=== PATIENT | female | born 1990 | race Two or more races ===

== ENCOUNTER → 2024-07-03 09:59 | Outpatient (CLI) | payer OTHER | END | disposition home or self-care (01) | LOC: PRENATAL 09:59 | PROVIDERS: ATTEND Obstetrics & Gynecology Maternal & Fetal Medicine | DX: O26.843 Uterine size-date discrepancy, third trimester (principal); O36.8130 Decreased fetal movements, third trimester, not applicable or unspecified; Z3A.34 34 weeks gestation of pregnancy ==

== ENCOUNTER 2024-08-02 05:38 | Inpatient (IN) | payer OTHER ==
[~2024-08-02] VITALS: Ht 157.5 cm; Wt 86.2 kg
[2024-08-02 05:55] VITALS: BP 117/60
[2024-08-02] MEDS ORDERED: PRENATAL TABLE1 EAC1 PO (06:45)
[2024-08-02] MEDS ORDERED: FOLIC ACID20 MG PO (06:45)
[2024-08-02] MEDS ORDERED: AMPICILLIN SODIUM 2,000 MG in 0.9 % SODIUM CHLORIDE 100 ML IV SCH (07:01)
[2024-08-02 07:03] LABS: PH,URINE 6.5 (5.0-8.0); URINE APPEARANCE Clear; URINE BILIRRUBIN Negative (NEGATIVE); URINE BLOOD Negative; URINE COLOR Yellow; URINE GLUCOSE Negative (NEGATIVE); URINE KETONE 15 (NEGATIVE); URINE LEUKOCYTE Trace; URINE NITRATE Negative; URINE PROTEIN Negative (NEGATIVE); URINE UROBILINOGEN 0.2 E.U./dl
[2024-08-02 07:06] LABS: URINE BACTERIA 4229.6 uL (0.0-1933); URINE EPITHELIAL CELLS 25.3 uL (0.0-38.8); URINE RBC 9.7 uL (0.0-20.8); URINE WBC 70.9 uL (0.0-23.2)
[2024-08-02 07:19] VITALS: BP 138/81
[2024-08-02 07:23] LABS: URINE CAST 0.15 uL (0.0-1.40)
[2024-08-02 07:39] LABS: INR 0.96; PARTIAL THROMBOPLASTIN TIME 25.1 SECONDS (22.0-34.0); PROTHROMBIN TIME 10.5 SECONDS (9.0-11.5)
[2024-08-02 07:43] LABS: ALBUMIN 2.8 gm/dL (3.4-5.0); BILIRUBIN TOTAL 0.27 mg/dL (0.3-1.2); CALCIUM 8.7 mg/dL (8.5-10.1); CREATININE SERUM 0.51 mg/dL (0.55-1.02); GFR 138.88; GLOBULINA 3.7 G/DL (2.4-3.5); POTASSIUM 3.98 mEq/L (3.5-5.1); TOTAL PROTEIN 6.5 gm/dL (6.4-8.2)
[2024-08-02] MEDS ORDERED: OXYTOCIN 500 ML IV SCH (07:45)
[2024-08-02 07:59] LABS: HEMATOCRIT 34.2 % (36.0-45.00); HEMOGLOBIN 12.1 g/dL (12.0-15.00); MEAN CELL VOLUME 91.7 fL (80.00-100.00); MEAN CORPUSCULAR HEMOGLOBIN 32.5 pg (27.00-32.0); MEAN CORPUSCULAR HGB CONC 35.5 g/dl (32.0-36.0); PLATELET COUNT 149 K/uL (150-450); RED BLOOD COUNT 3.73 M/uL (4.00-6.00); RED CELL DISTRIBUTION WIDTH 14.9 % (11.5-14.5)
[2024-08-02 12:30] VITALS: BP 132/67
[2024-08-02] MEDS ORDERED: MEPERIDINE HCL/PF 50 MG/ML VIAL IV ONE (12:45)
[2024-08-02] MEDS ORDERED: PROMETHAZINE HCL 50 MG/ML AMPUL IM ONE (12:45)
[2024-08-02] MEDS ORDERED: PROMETHAZINE HCL 25 MG/ML AMPUL IV NR (13:15)
[2024-08-02 15:03] VITALS: BP 136/63
[2024-08-02] MEDS ORDERED: BENZOCAINE/MENTHOL 90 ML BOTTLE TOP PRN (17:45)
[2024-08-02] MEDS ORDERED: IBUprofen 400 MG TABLET PO PRN (17:45)
[2024-08-02] MEDS ORDERED: OXYTOCIN 1,000 ML IV SCH (17:45)
[2024-08-02] MEDS ORDERED: ACETAMINOPHEN 500 MG GEL..CAP PO PRN (17:45)
[2024-08-02] MEDS ORDERED: CHLORHEXIDINE GLUCONATE 120 ML BOTTLE TP NR (17:45)
[2024-08-02] MEDS ORDERED: CEFOXITIN SODIUM 2,000 MG in DEXTROSE 5 % IN WATER 100 ML IV SCH (18:00)
[2024-08-02] MEDS ORDERED: DOCUSATE SODIUM 100MG CAP PO NR (18:04)
[2024-08-02] MEDS ORDERED: LIDOCAINE HCL 1% 10ML VIAL IJ ONE (20:00)
[2024-08-02] MEDS ORDERED: ERYTHROMYCIN BASE OPHT 1GM EACH TUBE OP ONE (20:00)
[2024-08-02 20:20] VITALS: BP 137/73
[2024-08-03 01:15] VITALS: BP 117/70
[2024-08-03 07:56] VITALS: BP 119/68
[2024-08-03] MEDS ORDERED: DOCUSATE SODIUM 100MG CAP PO SCH (09:00)
[2024-08-03 17:12] VITALS: BP 112/75
[2024-08-04] VITALS: BP 116/71
[2024-08-04 08:16] VITALS: BP 138/72
[2024-08-04] MEDS ORDERED: NAPR500T14 PO (10:07)
== END 2024-08-04 12:31 | disposition home or self-care (01) | DRG 768 ==
LOC: LDR → OB/GYN 18:48
PROVIDERS: ADMIT Obstetrics & Gynecology; ATTEND Obstetrics & Gynecology
PROC: 10E0XZZ Delivery of Products of Conception, External Approach (ICD-10-PCS; principal; 2024-08-02)
PROC: 0DQP0ZZ Repair Rectum, Open Approach (ICD-10-PCS; 2024-08-02)
PROC: 4A1HXCZ Monitoring of Products of Conception, Cardiac Rate, External Approach (ICD-10-PCS; 2024-08-02)
DX: O70.3 Fourth degree perineal laceration during delivery (principal); Z37.0 Single live birth; O99.824 Streptococcus B carrier state complicating childbirth; Z3A.38 38 weeks gestation of pregnancy; Z20.822 Contact with and (suspected) exposure to COVID-19